=== PATIENT | male | born 1970 | race Caucasian/White ===

== ENCOUNTER 2019-09-20 13:49 | Inpatient (IN) | payer OTHER ==
[~2019-09-20] VITALS: Ht 182.9 cm; Wt 122.5 kg
[2019-09-20 14:05] VITALS: BP 142/89
[2019-09-20 15:16] LABS: BASO # 0.1 10*3/uL (0.0-0.1); BASO % 0.9 % (0.0-1.0); EOS # 0.2 10*3/uL (0.0-0.4); EOS % 2.8 % (1.0-4.0); LYMPH # 2.1 10*3/uL (1.3-4.4); LYMPH % 27.3 % (27.0-41.0); MEAN CELL VOLUME 92.3 fl (80.0-94.0); MEAN CORPUSCULAR HGB 29.7 pg (27.0-31.0); MEAN CORPUSCULAR HGB CONC 32.2 g/dl (33.0-37.0); MEAN PLATELET VOLUME 10.6 fl (9.6-12.3); MONO # 0.5 10*3/uL (0.1-1.0); MONO % 5.9 % (3.0-9.0); NEUT # 4.9 10*3/uL (2.3-7.9); NEUT % 62.8 % (47.0-73.0); PLATELET COUNT AUTOMATED 201 10*3/uL (130-400); RED BLOOD COUNT 5.42 10*6/uL (4.50-5.90); RED CELL DISTRI WIDTH 12.4 % (0-14.5); WHITE BLOOD COUNT 7.7 10*3/uL (4.8-10.8)
[2019-09-20 15:30] LABS: ALBUMIN 3.6 gm/dl (3.1-4.5); ALKALINE PHOSPHATASE 128 U/L (45-117); BUN 9 mg/dl (7-24); CHLORIDE 102 mmol/L (98-107); CREATININE 0.82 mg/dL (0.70-1.30); LIPASE 908 U/L (73-393); SGOT/AST 47 IU/L (3-35); SGPT/ALT 62 U/L (12-78); SODIUM 136 mmol/L (136-145); TOTAL PROTEIN 7.4 gm/dL (6.4-8.2)
--- NOTE | 2019-09-20 16:04 | NUR ---
PT POSITIONED FOR COMFORT WITH SAFETY PRECAUTIONS INTACT AND CALL LIGHT WITHIN REACH,NO ADDITIONAL COMPLAINTS VOICED.
[2019-09-20 16:05] VITALS: BP 140/88
--- NOTE | 2019-09-20 16:55 | NUR ---
PT WITH MULTIPLE SCABS NOTED TO BLE AND ADDITIONAL CRACKS/CALLOUSES NOTED BETWEEN TOES,NO BLEEDING OR DRAINAGE.
[2019-09-20] MEDS ORDERED: ALBUTEROL1.25 MG/3 INH (17:57)
[2019-09-20] MEDS ORDERED: GABAPENTIN800 MG PO (17:58)
[2019-09-20] MEDS ORDERED: BACLOFEN20 M1 PO (17:59)
[2019-09-20] MEDS ORDERED: GABAPENTIN100 M2 PO (17:59)
[2019-09-20] MEDS ORDERED: DOXEPIN HCL100 MG PO (18:00)
[2019-09-20] MEDS ORDERED: DOXEPIN HCL50 MG PO (18:00)
[2019-09-20] MEDS ORDERED: ATARAX,VISTARIL50 MG PO (18:01)
[2019-09-20] MEDS ORDERED: DULOXETINE HCL60 MG PO (18:01)
[2019-09-20] MEDS ORDERED: PREGABALIN150 MG PO (18:03)
--- NOTE | 2019-09-20 18:25 | NUR ---
Time: 1827 A 49 year old MALE admitted to under services of BIBI IRBY DO. Pt. arrived via bed from ER. Chief complaint: CELLULITIS TO BILAT FEET. QIANA VILLANUEVA
[2019-09-20 18:37] VITALS: BP 146/90
[2019-09-20 20:00] VITALS: BP 148/75
[2019-09-21] VITALS: BP 129/93
--- NOTE | 2019-09-21 | NUR ---
PATIENT IN BED TEXTING ON PHONE AT THIS TIME. DENIES COMPLAINTS OF PAIN OR DISCOMFORT. RESPIRATIONS REGULAR AND NON-LABORED ON ROOM AIR. MULTIVITAMIN BAG INFUSING ORDERED. WILL CONTINUE TO MONITOR. CALL LIGHT IN REACH.
[2019-09-21 05:58] LABS: ALBUMIN 3.1 gm/dl (3.1-4.5); ALKALINE PHOSPHATASE 121 U/L (45-117); BUN 8 mg/dl (7-24); CHLORIDE 109 mmol/L (98-107); CHOLESTEROL 156 mg/dL (<200); CREATININE 0.73 mg/dL (0.70-1.30); HDL CHOLESTEROL 12 mg/dl (40-60); LDL CHOLESTEROL 64 mg/dL (9-159); POTASSIUM 4.1 mmol/L (3.5-5.1); SGOT/AST 38 IU/L (3-35); SGPT/ALT 55 U/L (12-78); SODIUM 138 mmol/L (136-145); TOTAL PROTEIN 6.8 gm/dL (6.4-8.2); TRIGLYCERIDES 402 mg/dl (<150); VLDL CHOLESTEROL 80 mg/dL (6-40)
[2019-09-21 06:06] LABS: BASO # 0.1 10*3/uL (0.0-0.1); BASO % 0.7 % (0.0-1.0); EOS # 0.4 10*3/uL (0.0-0.4); EOS % 4.8 % (1.0-4.0); HEMATOCRIT 50.6 % (42.0-52.0); LYMPH % 23.5 % (27.0-41.0); MEAN CELL VOLUME 93.2 fl (80.0-94.0); MEAN CORPUSCULAR HGB CONC 32.2 g/dl (33.0-37.0); MEAN PLATELET VOLUME 10.7 fl (9.6-12.3); MONO # 0.5 10*3/uL (0.1-1.0); MONO % 5.4 % (3.0-9.0); NEUT # 5.5 10*3/uL (2.3-7.9); NEUT % 65.2 % (47.0-73.0); PLATELET COUNT AUTOMATED 192 10*3/uL (130-400); RED BLOOD COUNT 5.43 10*6/uL (4.50-5.90); RED CELL DISTRI WIDTH 12.6 % (0-14.5); WHITE BLOOD COUNT 8.4 10*3/uL (4.8-10.8)
[2019-09-21 06:20] LABS: ACT PARTIAL THROMBO TIME 31.6 SECONDS (20.0-32.1)
[2019-09-21 07:06] LABS: VITAMIN D, 25-HYDROXY 16.6 ng/mL (30-100)
--- NOTE | 2019-09-21 08:00 | NUR ---
IN TO ROOM. PATIENT AWAKE, ALERT AND ORIENTED SITTING UP IN BED. PLEASANT AND COOPERATIVE WITH ASSESSMENT AND CARE. STATES HE DID NOT SLEEP WELL BUT THAT IS HIS NORMAL. DENIES PAIN. RESPIRATIONS ARE EASY AND REGULAR ON ROOM AIR AND NO SOB IS NOTED. BED IN LOWEST LOCKED POSITION AND CALL LIGHT WITHIN REACH.
--- NOTE | 2019-09-21 10:14 | NUR ---
DR. MORGAN'S RESIDENT NOTIFIED OF CONSULT.
[2019-09-21 12:00] VITALS: BP 153/95
[2019-09-21 16:00] VITALS: BP 150/98
[2019-09-21 20:00] VITALS: BP 144/94
[2019-09-22] VITALS: BP 162/98
--- NOTE | 2019-09-22 00:12 | NUR ---
DR. PARKINSON NOTIFIED OF PATIENT'S B/P OF . NEW ORDERS RECEIVED FOR LABETOLOL 20 IV NOW AND EKG. WILL CONTINUE TO MONITOR.
[2019-09-22 02:07] VITALS: BP 150/80
[2019-09-22 06:22] LABS: BASO # 0.1 10*3/uL (0.0-0.1); BASO % 0.5 % (0.0-1.0); EOS # 0.3 10*3/uL (0.0-0.4); EOS % 3.5 % (1.0-4.0); LYMPH # 1.3 10*3/uL (1.3-4.4); LYMPH % 13.9 % (27.0-41.0); MEAN CELL VOLUME 93.9 fl (80.0-94.0); MEAN CORPUSCULAR HGB 30.1 pg (27.0-31.0); MEAN CORPUSCULAR HGB CONC 32.1 g/dl (33.0-37.0); MEAN PLATELET VOLUME 11.6 fl (9.6-12.3); MONO # 0.4 10*3/uL (0.1-1.0); NEUT # 7.4 10*3/uL (2.3-7.9); NEUT % 77.8 % (47.0-73.0); PLATELET COUNT AUTOMATED 170 10*3/uL (130-400); RED BLOOD COUNT 5.11 10*6/uL (4.50-5.90); RED CELL DISTRI WIDTH 12.4 % (0-14.5); WHITE BLOOD COUNT 9.5 10*3/uL (4.8-10.8)
[2019-09-22 06:30] LABS: ALBUMIN 3.1 gm/dl (3.1-4.5); ALKALINE PHOSPHATASE 112 U/L (45-117); BUN 6 mg/dl (7-24); CHLORIDE 108 mmol/L (98-107); CREATININE 0.83 mg/dL (0.70-1.30); POTASSIUM 4.1 mmol/L (3.5-5.1); SGOT/AST 33 IU/L (3-35); SGPT/ALT 44 U/L (12-78); SODIUM 141 mmol/L (136-145); TOTAL PROTEIN 6.6 gm/dL (6.4-8.2)
[2019-09-22 08:00] VITALS: BP 157/82
--- NOTE | 2019-09-22 08:10 | NUR ---
KAREN MARTINEZ N [id number] Please refer to the physician's history and physical for past medical history, comorbid conditions, and allergies. Diagnosis: CELLULITIS OF BOTH FEET ELEVATED LIPASE Mushtaq Score: 20,LOW OR NO RISK WOUND DESCRIPTIONS: Wound Number: 1, 2, 3, 4 patient has multiple fissures noted to bilateral plantar aspect of feet and heels. No open areas noted at time of assessment. No drainage noted at time of assessment. No redness noted at time of assessment. No redness to surrounding areas at time of assessment. How does patient state this happened? pt stated this started because he can't wear shoes and had metal foot and removed it. Surface the patient is resting on: Isoflex SKIN PREVENTION RECOMMENDATION: 1. Pressure redistribution support surface as appropriate 2. Elevate heels 3. Remove boots/TEDS every shift and reapply 4. Head of bed 30 degrees as tolerated 5. Assess nutrition and hydration 6. Manage moisture 7. Avoid the use of containment devices while in bed 8. Use absorptive products on surfaces limit layers of linens on bed 9. Turn and reposition every 1-2 hours in bed and every 1 hour in chair as tolerated 10. Weight shifts every 15 minutes while up in chair 11. Offloading with pillows or device to keep heels elevated off bed 12. Monitor skin at least every shift 13. Inspect under medical devices twice a day WOUND TREATMENT RECOMMENDATIONS: Continue lac hydrin bid to bilateral feet. Podiatry is already on consult. Heel raiser pro boots to bilateral lower extremities. Clarify bactroban with podiatry.
--- NOTE | 2019-09-22 09:00 | NUR ---
Yard Cleaner in to talk to patient. Patient states lives at home with girlfriend. There are 17 steps in the home. Physician: vivian staley [facility] Home health services: none Patient's level of ADLs: INDEPENDENT Patient has working utilities: all working DME:cane Follow-up physician's appointment after d/c: will be made by hospitalist nurse director upon discharge Does patient want to access PORTAL?: no Discharge plan discussed with patient, he states he lives at home with his girlfriend, he uses a cane for ambulation he doesn't drive but his girlfriend takes him to the grocery store and his doctors appointments. patient stated he would be returning home when medically stable, discussed with him [facility] and educated him on the services they provide. he declined any home services at this time. patient stated he has a nurse from his insurance that visits once a month, educated him that [facility] offers different services from the insurance company nurse. he continued to decline any home services. ORVILLE BERMUDEZ
--- NOTE | 2019-09-22 11:09 | NUR ---
Dr. Scott notified of wound care recommendations.
[2019-09-22] MEDS ORDERED: DOXYCYCLINE100 M3 PO (11:37)
[2019-09-22] MEDS ORDERED: Bactroban Oint22 GM T (11:37)
--- NOTE | 2019-09-22 11:39 | NUR ---
Nutritional Support Services Note: Pt with Dx of cellulitis of both feet, elevated lipase. Ht.6' Wt.270# IBW [phone]. He receives a regular diet as ordered. Appetite is good for meals, he is eating 100% of all meals served. Will follow if needed. No other nutrition intervention needed at this time. Dixie Self Rdn Ld
--- NOTE | 2019-09-22 12:40 | NUR ---
PT REFUSED D/C WOUND PICTURES.
--- NOTE | 2019-09-22 13:59 | NUR ---
Discharge instructions reviewed with patient/family. Patient receptive and verbalizes understanding. Follow-up care arranged. Written instructions given to patient/family. VITA CREWS
== END 2019-09-22 13:10 | disposition home or self-care (01) | DRG 383 ==
LOC: ED 13:49 → EDHOLD 16:45 → 4E 16:45 → EDHOLD 17:33 → 4E 17:59
PROVIDERS: Family Medicine; Internal Medicine; Physician Assistant; ADMIT Family Medicine
DX: L03.115 Cellulitis of right lower limb (principal); R74.8 Abnormal levels of other serum enzymes; G62.1 Alcoholic polyneuropathy; F17.219 Nicotine dependence, cigarettes, with unspecified nicotine-induced disorders; L03.116 Cellulitis of left lower limb; E87.8 Other disorders of electrolyte and fluid balance, not elsewhere classified; B35.1 Tinea unguium; L85.3 Xerosis cutis; E78.1 Pure hyperglyceridemia; F10.20 Alcohol dependence, uncomplicated; E66.9 Obesity, unspecified; E55.9 Vitamin D deficiency, unspecified; M19.072 Primary osteoarthritis, left ankle and foot; R74.0 Nonspecific elevation of levels of transaminase and lactic acid dehydrogenase [LDH]; S91.311A Laceration without foreign body, right foot, initial encounter; X58.XXXA Exposure to other specified factors, initial encounter; Y93.89 Activity, other specified; Y92.89 Other specified places as the place of occurrence of the external cause; Y99.8 Other external cause status; Z79.899 Other long term (current) drug therapy; Z83.3 Family history of diabetes mellitus; Z71.6 Tobacco abuse counseling; Z68.36 Body mass index [BMI] 36.0-36.9, adult

== ENCOUNTER 2020-01-29 16:50 | Observation (INO) | payer OTHER ==
[~2020-01-29] VITALS: Ht 182.8 cm; Wt 122.6 kg
[~2020-01-29 16:50] MED LIST: ALBUTEROL1.25 MG/3 INH; ATARAX,VISTARIL50 MG PO; BACLOFEN20 M1 PO; Bactroban Oint22 GM T; DOXEPIN HCL100 MG PO; DOXEPIN HCL50 MG PO; DOXYCYCLINE100 M3 PO; DULOXETINE HCL60 MG PO; GABAPENTIN100 M2 PO; GABAPENTIN800 MG PO; PREGABALIN150 MG PO
[2020-01-29 17:03] VITALS: BP 108/68
[2020-01-29 17:43] LABS: BASO # 0.1 10*3/uL (0.0-0.1); EOS # 0.4 10*3/uL (0.0-0.4); EOS % 4.9 % (1.0-4.0); HEMATOCRIT 50.6 % (42.0-52.0); LYMPH % 23.7 % (27.0-41.0); MEAN CELL VOLUME 91.8 fl (80.0-94.0); MEAN CORPUSCULAR HGB 29.2 pg (27.0-31.0); MEAN CORPUSCULAR HGB CONC 31.8 g/dl (33.0-37.0); MONO # 0.5 10*3/uL (0.1-1.0); MONO % 5.5 % (3.0-9.0); NEUT # 5.5 10*3/uL (2.3-7.9); NEUT % 64.6 % (47.0-73.0); PLATELET COUNT AUTOMATED 219 10*3/uL (130-400); RED BLOOD COUNT 5.51 10*6/uL (4.50-5.90); WHITE BLOOD COUNT 8.6 10*3/uL (4.8-10.8)
[2020-01-29 17:55] LABS: ACT PARTIAL THROMBO TIME 30.8 SECONDS (20.0-32.1)
[2020-01-29 17:59] LABS: ALBUMIN 3.7 gm/dl (3.1-4.5); ALKALINE PHOSPHATASE 165 U/L (45-117); BUN 5 mg/dl (7-24); CHLORIDE 99 mmol/L (98-107); LIPASE 121 U/L (73-393); POTASSIUM 3.9 mmol/L (3.5-5.1); SGOT/AST 58 IU/L (3-35); SGPT/ALT 79 U/L (12-78); SODIUM 135 mmol/L (136-145)
[2020-01-29 21:30] VITALS: BP 135/89
[2020-01-29] MEDS ORDERED: LIPITOR20 MG PO (22:37)
[2020-01-29] MEDS ORDERED: ASPIRIN ADULT L81 M1 PO (22:39)
[2020-01-29] MEDS ORDERED: TRAZODONE HCL300 MG PO (22:42)
[2020-01-29] MEDS ORDERED: TADALAFIL5 M1 PO (22:43)
[2020-01-29] MEDS ORDERED: COMBIVENT RESPIM4 GM INH (22:44)
[2020-01-29] MEDS ORDERED: CENTRUM SILVER1 EAC3 PO (22:45)
[2020-01-30] VITALS: BP 119/92
[2020-01-30 01:53] LABS: URINE AMPHETAMINES < 1000 (1000ng/ml); URINE BARBITURATES < 200 (200ng/ml); URINE BENZODIAZEPINES < 200 (200ng/ml); URINE CANNABINOIDS (THC) > 50 (50ng/ml); URINE COCAINE < 300 (300ng/ml); URINE METHADONE < 300 (300ng/ml); URINE OPIATES < 300 (300ng/ml)
[2020-01-30 01:54] LABS: URINE PHENCYCLIDINE < 25 (25ng/ml)
[2020-01-30 01:57] LABS: BILIRUBIN NEGATIVE; BLOOD TRACE-INTACT (NEGATIVE); CLARITY CLEAR (CLEAR); COLOR YELLOW (YELLOW); GLUCOSE NEGATIVE; KETONE NEGATIVE; SPECIFIC GRAVITY 1.015 (1.001-1.030)
[2020-01-30 01:58] LABS: LEUKO ESTERASE NEGATIVE (NEGATIVE); NITRITE NEGATIVE (NEGATIVE); WBC 0-2 wbc/hpf (0-5)
[2020-01-30 06:07] LABS: BASO # 0.1 10*3/uL (0.0-0.1); BASO % 0.6 % (0.0-1.0); EOS % 0.3 % (1.0-4.0); HEMATOCRIT 49.4 % (42.0-52.0); LYMPH # 1.1 10*3/uL (1.3-4.4); LYMPH % 13.6 % (27.0-41.0); MEAN CORPUSCULAR HGB 28.9 pg (27.0-31.0); MEAN CORPUSCULAR HGB CONC 30.6 g/dl (33.0-37.0); MEAN PLATELET VOLUME 11.3 fl (9.6-12.3); MONO # 0.1 10*3/uL (0.1-1.0); NEUT # 6.6 10*3/uL (2.3-7.9); NEUT % 83.9 % (47.0-73.0); PLATELET COUNT AUTOMATED 223 10*3/uL (130-400); RED BLOOD COUNT 5.23 10*6/uL (4.50-5.90); RED CELL DISTRI WIDTH 12.9 % (0-14.5); WHITE BLOOD COUNT 7.9 10*3/uL (4.8-10.8)
[2020-01-30 06:08] LABS: MEAN CELL VOLUME 94.5 fl (80.0-94.0)
[2020-01-30 06:21] LABS: ALBUMIN 3.3 gm/dl (3.1-4.5); BUN 6 mg/dl (7-24); CHLORIDE 104 mmol/L (98-107); CHOLESTEROL 121 mg/dL (<200); CREATININE 0.88 mg/dL (0.70-1.30); HDL CHOLESTEROL 17 mg/dl (40-60); LDL CHOLESTEROL 73 mg/dL (9-159); POTASSIUM 4.5 mmol/L (3.5-5.1); SGOT/AST 57 IU/L (3-35); SGPT/ALT 76 U/L (12-78); SODIUM 137 mmol/L (136-145); TOTAL PROTEIN 7.5 gm/dL (6.4-8.2); TRIGLYCERIDES 153 mg/dl (<150); VLDL CHOLESTEROL 31 mg/dL (6-40)
[2020-01-30 06:23] LABS: ALKALINE PHOSPHATASE 148 U/L (45-117); FREE T4 0.78 ng/dl (0.76-1.46)
[2020-01-30 06:25] LABS: THYROID STIM HORMONE (HS) 0.971 uIU/ml (0.358-4.75)
[2020-01-30 08:00] VITALS: BP 144/80
[2020-01-30 08:06] LABS: VITAMIN D, 25-HYDROXY 14.2 ng/mL (30-100)
[2020-01-30 12:00] VITALS: BP 135/79
[2020-01-30 16:00] VITALS: BP 125/82
[2020-01-30 20:00] VITALS: BP 126/89
[2020-01-31] VITALS: BP 135/90
[2020-01-31 07:39] LABS: BASO % 0.3 % (0.0-1.0); HEMATOCRIT 47.5 % (42.0-52.0); LYMPH # 1.4 10*3/uL (1.3-4.4); LYMPH % 9.6 % (27.0-41.0); MEAN CELL VOLUME 92.8 fl (80.0-94.0); MEAN CORPUSCULAR HGB 29.1 pg (27.0-31.0); MEAN CORPUSCULAR HGB CONC 31.4 g/dl (33.0-37.0); MEAN PLATELET VOLUME 10.8 fl (9.6-12.3); MONO # 0.5 10*3/uL (0.1-1.0); MONO % 3.5 % (3.0-9.0); NEUT # 12.6 10*3/uL (2.3-7.9); NEUT % 86.1 % (47.0-73.0); PLATELET COUNT AUTOMATED 236 10*3/uL (130-400); RED BLOOD COUNT 5.12 10*6/uL (4.50-5.90); RED CELL DISTRI WIDTH 12.8 % (0-14.5); WHITE BLOOD COUNT 14.7 10*3/uL (4.8-10.8)
[2020-01-31 07:51] LABS: BUN 12 mg/dl (7-24); CHLORIDE 104 mmol/L (98-107); POTASSIUM 4.5 mmol/L (3.5-5.1); SODIUM 138 mmol/L (136-145)
[2020-01-31 08:00] VITALS: BP 135/76
[2020-01-31 12:00] VITALS: BP 148/93
[2020-01-31 15:08] LABS: ABG BASE EXCESS 6.8 mmol/L (-2.0-2.0); ARTERIAL BLOOD GAS PH 7.405 (7.35-7.45)
[2020-01-31 16:00] VITALS: BP 137/86
[2020-01-31 20:00] VITALS: BP 125/77
[2020-02-01] VITALS: BP 116/64
[2020-02-01 06:55] LABS: BASO % 0.4 % (0.0-1.0); EOS % 0.1 % (1.0-4.0); HEMATOCRIT 48.1 % (42.0-52.0); LYMPH # 1.4 10*3/uL (1.3-4.4); LYMPH % 12.3 % (27.0-41.0); MEAN CELL VOLUME 95.2 fl (80.0-94.0); MEAN CORPUSCULAR HGB 29.1 pg (27.0-31.0); MEAN CORPUSCULAR HGB CONC 30.6 g/dl (33.0-37.0); MEAN PLATELET VOLUME 11.5 fl (9.6-12.3); MONO # 0.4 10*3/uL (0.1-1.0); MONO % 3.4 % (3.0-9.0); NEUT # 9.2 10*3/uL (2.3-7.9); NEUT % 83.3 % (47.0-73.0); PLATELET COUNT AUTOMATED 212 10*3/uL (130-400); RED BLOOD COUNT 5.05 10*6/uL (4.50-5.90); RED CELL DISTRI WIDTH 13.1 % (0-14.5)
[2020-02-01 06:56] LABS: BUN 10 mg/dl (7-24); CHLORIDE 104 mmol/L (98-107); POTASSIUM 4.6 mmol/L (3.5-5.1); SODIUM 136 mmol/L (136-145)
[2020-02-01 06:57] LABS: CREATININE 0.74 mg/dL (0.70-1.30)
[2020-02-01 08:00] VITALS: BP 124/74
[2020-02-01 12:00] VITALS: BP 135/79
[2020-02-01 16:00] VITALS: BP 127/73
[2020-02-01 20:00] VITALS: BP 166/97
[2020-02-02] VITALS: BP 150/86; BP 150/93
[2020-02-02 06:29] LABS: BASO # 0.1 10*3/uL (0.0-0.1); BASO % 0.7 % (0.0-1.0); EOS # 0.2 10*3/uL (0.0-0.4); HEMATOCRIT 46.1 % (42.0-52.0); LYMPH # 2.4 10*3/uL (1.3-4.4); LYMPH % 26.8 % (27.0-41.0); MEAN CELL VOLUME 94.3 fl (80.0-94.0); MEAN CORPUSCULAR HGB 28.8 pg (27.0-31.0); MEAN CORPUSCULAR HGB CONC 30.6 g/dl (33.0-37.0); MEAN PLATELET VOLUME 11.1 fl (9.6-12.3); MONO # 0.5 10*3/uL (0.1-1.0); MONO % 5.7 % (3.0-9.0); NEUT # 5.9 10*3/uL (2.3-7.9); NEUT % 64.5 % (47.0-73.0); PLATELET COUNT AUTOMATED 192 10*3/uL (130-400); RED BLOOD COUNT 4.89 10*6/uL (4.50-5.90); WHITE BLOOD COUNT 9.1 10*3/uL (4.8-10.8)
[2020-02-02 06:46] LABS: BUN 11 mg/dl (7-24); CHLORIDE 104 mmol/L (98-107); CREATININE 0.72 mg/dL (0.70-1.30); SODIUM 139 mmol/L (136-145)
[2020-02-02 06:55] LABS: POTASSIUM 3.5 mmol/L (3.5-5.1)
[2020-02-02 08:00] VITALS: BP 116/89
[2020-02-02 12:00] VITALS: BP 134/92
[2020-02-02] MEDS ORDERED: VITAMIN D350 MC2 PO (13:02)
[2020-02-02] MEDS ORDERED: THERA M PLUS T1 EACH PO (13:02)
[2020-02-02] MEDS ORDERED: PREDNISONE10 MG PO (13:02)
[2020-02-02] MEDS ORDERED: DOXYCYCLINE100 M3 PO (13:11)
[2020-02-02] MEDS ORDERED: K-TAB20 MEQ PO (13:17)
[2020-02-02] MEDS ORDERED: LASIX40 MG PO (13:17)
== END 2020-02-02 15:05 | disposition home or self-care (01) ==
LOC: ED 16:50 → EDHOLD 18:31 → 4E 19:45
PROVIDERS: Internal Medicine; Internal Medicine Critical Care Medicine; Nurse Practitioner Family; Student in an Organized Health Care Education/Training Program; ADMIT Internal Medicine; ATTEND Internal Medicine
DX: I11.0 Hypertensive heart disease with heart failure (principal); I50.31 Acute diastolic (congestive) heart failure; F10.239 Alcohol dependence with withdrawal, unspecified; L03.116 Cellulitis of left lower limb; J44.1 Chronic obstructive pulmonary disease with (acute) exacerbation; E44.0 Moderate protein-calorie malnutrition; R74.0 Nonspecific elevation of levels of transaminase and lactic acid dehydrogenase [LDH]; E66.9 Obesity, unspecified; Z68.36 Body mass index [BMI] 36.0-36.9, adult

== ENCOUNTER 2020-10-30 09:16 | Emergency (ER) | payer OTHER ==
[~2020-10-30] VITALS: Wt 136.1 kg
[~2020-10-30 09:16] MED LIST changes: +ASPIRIN ADULT L81 M1 PO; +CENTRUM SILVER1 EAC3 PO; +COMBIVENT RESPIM4 GM INH; +K-TAB20 MEQ PO; +LASIX40 MG PO; +LIPITOR20 MG PO; +PREDNISONE10 MG PO; +TADALAFIL5 M1 PO; +THERA M PLUS T1 EACH PO; +TRAZODONE HCL300 MG PO; +VITAMIN D350 MC2 PO
[2020-10-30 10:25] LABS: BASO # 0.1 10*3/uL (0.0-0.1); BASO % 1.1 % (0.0-1.0); EOS # 0.2 10*3/uL (0.0-0.4); EOS % 3.4 % (1.0-4.0); HEMATOCRIT 50.1 % (42.0-52.0); LYMPH # 2.4 10*3/uL (1.3-4.4); LYMPH % 36.3 % (27.0-41.0); MEAN CELL VOLUME 103.9 fl (80.0-94.0); MEAN CORPUSCULAR HGB 34.9 pg (27.0-31.0); MEAN CORPUSCULAR HGB CONC 33.5 g/dl (33.0-37.0); MEAN PLATELET VOLUME 11.5 fl (9.6-12.3); MONO # 0.4 10*3/uL (0.1-1.0); NEUT # 3.4 10*3/uL (2.3-7.9); PLATELET COUNT AUTOMATED 181 10*3/uL (130-400); RED BLOOD COUNT 4.82 10*6/uL (4.50-5.90); RED CELL DISTRI WIDTH 14.6 % (0-14.5); WHITE BLOOD COUNT 6.5 10*3/uL (4.8-10.8)
[2020-10-30 10:47] LABS: ALBUMIN 3.1 gm/dl (3.1-4.5); ALKALINE PHOSPHATASE 123 U/L (45-117); BUN 4 mg/dl (7-24); CHLORIDE 98 mmol/L (98-107); CREATININE 0.56 mg/dL (0.70-1.30); POTASSIUM 3.5 mmol/L (3.5-5.1); SGOT/AST 107 IU/L (3-35); SGPT/ALT 91 U/L (12-78); SODIUM 133 mmol/L (136-145); TOTAL PROTEIN 6.8 gm/dL (6.4-8.2)
[2020-10-30 10:48] LABS: TROPONIN I 0.031 ng/ml (<0.045)
[2020-10-30] MEDS ORDERED: PREDNISONE50 MG PO (11:31)
== END 2020-10-30 11:40 | disposition home or self-care (01) ==
LOC: ED 09:16
PROVIDERS: Student in an Organized Health Care Education/Training Program
DX: S30.1XXA Contusion of abdominal wall, initial encounter (principal); I87.2 Venous insufficiency (chronic) (peripheral); F17.210 Nicotine dependence, cigarettes, uncomplicated; R05 Cough; Z79.899 Other long term (current) drug therapy; Z79.2 Long term (current) use of antibiotics; Z79.82 Long term (current) use of aspirin; X50.9XXA Other and unspecified overexertion or strenuous movements or postures, initial encounter; Y93.89 Activity, other specified; Y92.89 Other specified places as the place of occurrence of the external cause; Y99.8 Other external cause status

== ENCOUNTER → 2024-08-13 | Outpatient (CLI) | payer OTHER, MEDICAID ==
[~2024-08-13] MED LIST changes: +BUMETANIDE1 MG PO; +LEADER NATUR1000 MCG PO; +NATURE'S BLEND F1 MG PO; +PRAZOSIN HYDROCH5 MG PO; +PREDNISONE50 MG PO; +PREGABALIN200 MG PO; +PROVENTIL HFA6.7 GM INH; +SPIRONOLACTONE100 MG PO; +TRELEGY ELLIPT1 EAC1 INH; +VIBRA-TAB100 MG PO
== END | disposition home or self-care (01) ==
LOC: CT 10:00
PROVIDERS: ATTEND Nurse Practitioner Family
DX: Z12.2 Encounter for screening for malignant neoplasm of respiratory organs (principal); F17.218 Nicotine dependence, cigarettes, with other nicotine-induced disorders; I25.10 Atherosclerotic heart disease of native coronary artery without angina pectoris; J43.2 Centrilobular emphysema; R91.1 Solitary pulmonary nodule

== ENCOUNTER → 2024-12-02 | Outpatient (CLI) | payer OTHER, MEDICAID ==
[~2024-12-02] MED LIST changes: +BARIUM SULFATE 60% 355 ML BOT PO ONE; +BARIUM SULFATE 98% 340 GM BOT PO ONE; +BARIUM SULFATE TABLET 700 MG PO ONE; +SODIUM BICARBONATE 4 GM PACK PO ONE
== END ==
LOC: RAD 09:34
PROVIDERS: ATTEND Nurse Practitioner Family
DX: K21.9 Gastro-esophageal reflux disease without esophagitis (principal); R13.10 Dysphagia, unspecified